=== PATIENT | male | born 1960 | race Caucasian/White ===

== ENCOUNTER 2018-03-14 04:55 | Inpatient (IN) | payer MEDICAID, OTHER ==
[~2018-03-14] VITALS: Ht 182.9 cm; Wt 97.4 kg
[~2018-03-14 04:55] MED LIST: AMOX-291 PO; LISI-167 PO; ONDA4TAB10 PO; OXYC-307 PO; PANT40TA5 PO
[2018-03-14] MEDS ORDERED: OXYcodone/APAP 10/325MG TABLET ONE (05:20)
[2018-03-14] MEDS ORDERED: ONDANSETRON ODT 4 MG PO ONE (05:30)
[2018-03-14] MEDS ORDERED: OXYcodone/APAP 10/325MG TABLET PO ONE (05:30)
[2018-03-14] MEDS ORDERED: SODIUM CHLORIDE 0.9% 1,000ML IVBOLUS ONE (07:00)
[2018-03-14] MEDS ORDERED: SODIUM CHLORIDE FLUSH 10ML SYR IVF ONE (07:00)
[2018-03-14] MEDS ORDERED: PROMETHAZINE 25 MG/ML, 1ML IM ONE (07:00)
[2018-03-14] MEDS ORDERED: PROMETHAZINE 25 MG/ML, 1ML ONE (07:08)
[2018-03-14 07:14] LABS: BASOPHILS # (AUTO) 0.01 x10^3/uL (0-0.1); BASOPHILS % (AUTO) 0 % (0-1); EOSINOPHILS # (AUTO) 0.03 x10^3/uL (0-0.4); EOSINOPHILS % (AUTO) 0 % (1-7); LYMPHOCYTES # (AUTO) 1.35 x10^3/uL (1-3.4); LYMPHOCYTES % (AUTO) 10 % (22-44); MD NO; MEAN CORPUSCULAR HEMOGLOBIN 31.4 pg (27.5-34.5); MEAN CORPUSCULAR HGB CONC 33.4 g/dL (33.2-36.2); MEAN CORPUSCULAR VOLUME 93.9 fL (81-97); MEAN PLATELET VOLUME 8.5 fL (7.4-10.4); MONOCYTES # (AUTO) 0.04 x10^3/uL (0.2-0.8); MONOCYTES % (AUTO) 0 % (2-9); NEUTROPHILS # (AUTO) 12.79 x10^3/uL (1.8-6.8); NEUTROPHILS % (AUTO) 90 % (42-75); PLATELET COUNT 197 x10^3/uL (130-400); RED BLOOD COUNT 5.63 x10^6/uL (4.38-5.82); RED CELL DISTRIBUTION WIDTH 13.5 % (9.4-14.8)
[2018-03-14 07:23] LABS: ALANINE AMINOTRANSFERASE 41 U/L (12-78); ALBUMIN 4.1 g/dL (3.4-5.0); ANION GAP 8 mmol/L (5-15); CALCIUM 9.4 mg/dL (8.5-10.1); CHLORIDE 108 mmol/L (98-107); CREATININE 1.11 mg/dL (0.7-1.3)
[2018-03-14 07:25] LABS: ALKALINE PHOSPHATASE 76 U/L (45-117); BILIRUBIN,TOTAL 0.7 mg/dL (0.2-1.0); TOTAL PROTEIN 7.8 g/dL (6.4-8.2)
[2018-03-14 07:27] LABS: TROPONIN I < 0.015 ng/mL (0.000-0.045)
[2018-03-14] MEDS ORDERED: DIAZEPAM 5 MG/ML, 2ML IV ONE (09:00)
[2018-03-14] MEDS ORDERED: ATOR10TA9 PO (10:22)
[2018-03-14] MEDS ORDERED: ACETAMINOPHEN 325 MG TABLET PO PRN (12:00)
[2018-03-14] MEDS ORDERED: PROCHLORPERAZINE 5 MG/ML, 2ML IVPush PRN (12:00)
[2018-03-14] MEDS ORDERED: LORazepam 2 MG/ML, 1ML IVPush PRN (12:00)
[2018-03-14] MEDS ORDERED: METOCLOPRAMIDE 5 MG/ML, 2ML IVPush PRN (12:00)
[2018-03-14] MEDS: D5%-0.9% NACL+KCL 20MEQ 1,000 ML IV SCH ×2 (12:49→20:04)
[2018-03-14 12:50] VITALS: BP 186/92
[2018-03-14] MEDS ORDERED: hydrALAzine 20 MG/ML, 1ML IV PRN (13:00)
[2018-03-14] MEDS: LISINOPRIL 10 MG TABLET PO SCH (13:09)
[2018-03-14] MEDS: ONDANSETRON ODT 4 MG PO SCH ×2 (13:09→19:30)
[2018-03-14] MEDS: LORazepam 2 MG/ML, 1ML IVPush PRN ×2 (13:09→19:30)
[2018-03-14] MEDS: FAMOTIDINE 20 MG/2 ML IVPush SCH ×2 (13:09→20:47)
[2018-03-14] MEDS: ENOXAPARIN 40 MG/0.4 ML SQ SCH (13:10)
[2018-03-14 13:41] VITALS: BP 175/78
[2018-03-14 14:42] VITALS: BP 144/72
[2018-03-14] MEDS: OXYcodone/APAP 10/325MG TABLET PO SCH (19:30)
[2018-03-14 20:27] VITALS: BP 177/80
[2018-03-14] MEDS ORDERED: ATORVASTATIN 10 MG TABLET PO SCH (21:00)
[2018-03-15] MEDS: OXYcodone/APAP 10/325MG TABLET PO SCH ×2 (00:28→08:06)
[2018-03-15 00:33] VITALS: BP 186/96
[2018-03-15] MEDS: ONDANSETRON ODT 4 MG PO SCH ×3 (01:39→14:55)
[2018-03-15] MEDS: D5%-0.9% NACL+KCL 20MEQ 1,000 ML IV SCH ×2 (02:25→10:20)
[2018-03-15 03:57] VITALS: BP 104/66
[2018-03-15 05:31] LABS: BASOPHILS # (AUTO) 0.06 x10^3/uL (0-0.1); BASOPHILS % (AUTO) 0 % (0-1); EOSINOPHILS # (AUTO) 0.04 x10^3/uL (0-0.4); EOSINOPHILS % (AUTO) 0 % (1-7); LYMPHOCYTES # (AUTO) 3.22 x10^3/uL (1-3.4); LYMPHOCYTES % (AUTO) 22 % (22-44); MD NO; MEAN CORPUSCULAR HEMOGLOBIN 31.5 pg (27.5-34.5); MEAN CORPUSCULAR HGB CONC 33.3 g/dL (33.2-36.2); MEAN CORPUSCULAR VOLUME 94.6 fL (81-97); MEAN PLATELET VOLUME 8.7 fL (7.4-10.4); MONOCYTES # (AUTO) 0.97 x10^3/uL (0.2-0.8); MONOCYTES % (AUTO) 7 % (2-9); NEUTROPHILS # (AUTO) 10.35 x10^3/uL (1.8-6.8); NEUTROPHILS % (AUTO) 71 % (42-75); PLATELET COUNT 174 x10^3/uL (130-400); RED BLOOD COUNT 4.76 x10^6/uL (4.38-5.82); RED CELL DISTRIBUTION WIDTH 13.3 % (9.4-14.8)
[2018-03-15 05:38] LABS: ALBUMIN 3.1 g/dL (3.4-5.0); ANION GAP 8 mmol/L (5-15); CALCIUM 8.3 mg/dL (8.5-10.1); CHLORIDE 111 mmol/L (98-107)
[2018-03-15 05:42] LABS: ALANINE AMINOTRANSFERASE 28 U/L (12-78); ALKALINE PHOSPHATASE 55 U/L (45-117); BILIRUBIN,TOTAL 0.9 mg/dL (0.2-1.0); CREATININE 0.93 mg/dL (0.7-1.3); TOTAL PROTEIN 5.9 g/dL (6.4-8.2)
[2018-03-15 07:18] VITALS: BP 111/66
[2018-03-15] MEDS: FAMOTIDINE 20 MG/2 ML IVPush SCH (08:05)
[2018-03-15] MEDS: LISINOPRIL 10 MG TABLET PO SCH (08:05)
[2018-03-15] MEDS: ENOXAPARIN 40 MG/0.4 ML SQ SCH (11:38)
[2018-03-15 13:38] VITALS: BP 135/77
[2018-03-15] MEDS ORDERED: OXYcodone/APAP 10/325MG TABLET PO ONE (14:00)
== END 2018-03-15 15:41 | disposition home or self-care (01) | DRG 897 ==
LOC: ED 06:18 → EDIP 08:49 → 3NE 11:04
PROVIDERS: ADMIT Internal Medicine; ATTEND Hospitalist
DX: F11.23 Opioid dependence with withdrawal (principal); E87.2 Acidosis; I10 Essential (primary) hypertension; D72.829 Elevated white blood cell count, unspecified; R73.9 Hyperglycemia, unspecified; G89.4 Chronic pain syndrome; E86.9 Volume depletion, unspecified; E78.5 Hyperlipidemia, unspecified; Z87.11 Personal history of peptic ulcer disease; Z83.3 Family history of diabetes mellitus; Z82.49 Family history of ischemic heart disease and other diseases of the circulatory system
CPT/HCPCS: 36415; 80053; 83605; 83690; 83735; 84100; 84484; 85025; 93005; J1650; J2550; J3360; Q0162; J0360; J2060; J3480; J7030; S0028

== ENCOUNTER 2020-10-05 22:43 | Emergency (ER) | payer MEDICAID, OTHER ==
[~2020-10-05] VITALS: Ht 182.9 cm; Wt 75.3 kg
[~2020-10-05 22:43] MED LIST changes: +ATOR10TA9 PO; -PANT40TA5 PO; +PANT40TA6 PO
[2020-10-05 22:46] VITALS: BP 128/74
[2020-10-05] MEDS ORDERED: MAALOX/HYOSCYAMINE/LIDOCAINE 45 ML BTL ONE (23:24)
[2020-10-05] MEDS ORDERED: FAMOTIDINE 20 MG TABLET ONE (23:25)
[2020-10-05] MEDS ORDERED: ONDANSETRON ODT 4 MG ONE (23:25)
[2020-10-05] MEDS ORDERED: FAMOTIDINE 20 MG TABLET PO ONE (23:30)
[2020-10-05] MEDS ORDERED: MAALOX/HYOSCYAMINE/LIDOCAINE 45 ML BTL PO ONE (23:30)
[2020-10-05] MEDS ORDERED: ONDANSETRON ODT 4 MG PO ONE (23:30)
[2020-10-05] MEDS ORDERED: METR500T PO (23:37)
[2020-10-05] MEDS ORDERED: CIPR500T87 PO (23:37)
[2020-10-05 23:42] LABS: BASOPHILS % (AUTO) 1 % (0-1); EOSINOPHILS % (AUTO) 1 % (1-7); LYMPHOCYTES % (AUTO) 15 % (22-44); MEAN CORPUSCULAR HEMOGLOBIN 32.7 pg (27.5-34.5); MEAN CORPUSCULAR HGB CONC 34.4 g/dL (33.2-36.2); MEAN PLATELET VOLUME 7.7 fL (7.4-10.4); MONOCYTES % (AUTO) 8 % (2-9); NEUTROPHILS % (AUTO) 76 % (42-75); PLATELET COUNT 249 x10^3/uL (130-400); RED BLOOD COUNT 4.12 x10^6/uL (4.38-5.82); RED CELL DISTRIBUTION WIDTH 13.6 % (9.4-14.8)
--- NOTE | 2020-10-05 23:44 | NUR ---
Patient sitting upright on stretcher in poc, call salcedo within reach, vss, nad. Will continue to monitor.
[2020-10-05 23:50] LABS: MD NO
[2020-10-05 23:53] LABS: ALANINE AMINOTRANSFERASE 27 U/L (12-78); ALBUMIN 3.6 g/dL (3.4-5.0); ANION GAP 6 mmol/L (5-15); CALCIUM 9.1 mg/dL (8.5-10.1); CHLORIDE 101 mmol/L (98-107); CREATININE 0.85 mg/dL (0.7-1.3)
[2020-10-05 23:57] LABS: ALKALINE PHOSPHATASE 56 U/L (45-117); BILIRUBIN,TOTAL 0.6 mg/dL (0.2-1.0); TOTAL PROTEIN 6.6 g/dL (6.4-8.2); TROPONIN I < 0.015 ng/mL (0.000-0.045)
[2020-10-06] MEDS ORDERED: METHYLNALTREXONE 12 MG/0.6 ML SYR SQ ONE (01:00)
== END 2020-10-06 01:55 | disposition home or self-care (01) ==
LOC: ED 23:08
DX: R10.31 Right lower quadrant pain (principal); R10.13 Epigastric pain; K59.00 Constipation, unspecified; I10 Essential (primary) hypertension; R11.2 Nausea with vomiting, unspecified; E78.5 Hyperlipidemia, unspecified; R94.31 Abnormal electrocardiogram [ECG] [EKG]
CPT/HCPCS: 36415; 76700; 80053; 83690; 84484; 85025; 93005; 96372; 99285; Q0162